=== PATIENT | male | born 1930 | race Caucasian/White ===

== ENCOUNTER 2021-03-27 10:10 | Emergency (ER) | payer MEDICARE ==
[~2021-03-27 10:10] MED LIST: KEFLEX CAP 500500 MG PO
[2021-03-27 10:36] LABS: HEMOGLOBIN 14.1 gm/dl (14.0-17.5); RED BLOOD COUNT 4.51 M/UL (4.20-5.50); WHITE BLOOD COUNT 13.1 K/UL (4.5-11.0)
[2021-03-27 11:08] LABS: BUN/CREATININE RATIO 14 (0-10)
== END 2021-03-27 14:46 | disposition home or self-care (01) ==
LOC: ER1 10:10
DX: R91.1 Solitary pulmonary nodule (principal); R06.00 Dyspnea, unspecified; I48.91 Unspecified atrial fibrillation; I25.2 Old myocardial infarction; I10 Essential (primary) hypertension; Z87.891 Personal history of nicotine dependence; Z79.01 Long term (current) use of anticoagulants; Z20.822 Contact with and (suspected) exposure to COVID-19
CPT/HCPCS: 71045; 71250; 80053; 81001; 82550; 82553; 83874; 83880; 84484; 85025; 93005; 99285; U0002